=== PATIENT | female | born 1985 | race Caucasian/White ===

== ENCOUNTER 2017-07-11 20:12 | Emergency (ER) | payer OTHER ==
[~2017-07-11] VITALS: Ht 154.9 cm; Wt 43.5 kg
[~2017-07-11 20:12] MED LIST: AMOXICILLIN500 M1 PO; PRENATAL W/FOLI1 TA1 PO; SUBOXONE 12 MG1 EACH SL; TYLENOL #3 PO; VICODIN 5/500 T1 TAB PO; ZANTAC; ZYRTEC
== END 2017-07-11 22:02 | disposition home or self-care (01) ==
LOC: SED 20:12
DX: H65.91 Unspecified nonsuppurative otitis media, right ear (principal); F17.210 Nicotine dependence, cigarettes, uncomplicated; Z90.49 Acquired absence of other specified parts of digestive tract
CPT/HCPCS: 99283